=== PATIENT | female | born 2005 | race Caucasian/White ===

== ENCOUNTER 2024-10-29 19:01 | Emergency (ER) | payer OTHER ==
[~2024-10-29] VITALS: Ht 157.5 cm; Wt 60.0 kg
[2024-10-29 19:06] VITALS: BP 117/78; PULSE 79; RESP 18; TEMP 97.9; O2SAT 100
[2024-10-29] MEDS ORDERED: D-ME-162 PO (19:13)
[2024-10-29] MEDS: ACETAMINOPHEN 500 MG TABLET PO ONE (22:24)
[2024-10-29] MEDS: METOCLOPRAMIDE HCL 10 MG TABLET PO ONE (22:24)
[2024-10-29] MEDS: IBUPROFEN 400 MG TABLET PO ONE (22:24)
[2024-10-29 22:31] LABS: COVID AG,FIA SOURCE NASAL SWAB
[2024-10-29 22:49] LABS: INFLUENZA TYPE A NEGATIVE FOR TYPE A (NEGATIVE); INFLUENZA TYPE B NEGATIVE FOR TYPE B (NEGATIVE); SARS-COV2 (COVID) ANTIGEN,FIA Negative (Negative)
[2024-10-29] MEDS ORDERED: IBUP-1506 PO (23:13)
== END 2024-10-29 23:18 | disposition home or self-care (01) ==
LOC: EMS 19:01
DX: G43.909 Migraine, unspecified, not intractable, without status migrainosus (principal); J06.9 Acute upper respiratory infection, unspecified; B97.89 Other viral agents as the cause of diseases classified elsewhere; H11.152 Pinguecula, left eye; Z20.822 Contact with and (suspected) exposure to COVID-19; Z79.899 Other long term (current) drug therapy
CPT/HCPCS: 87804; 99284; Z7502; Z7610